=== PATIENT | female | born 1945 | race Caucasian/White ===

== ENCOUNTER 2016-06-20 10:46 | Inpatient (IN) | payer MEDICARE, OTHER ==
[2016-06-08 15:50] LABS: BASOPHILS 0.4 %; BASOPHILS ABSOLUTE 0.06 10/3/uL (0.0-0.16); EOSINOPHILS ABSOLUTE 0.13 10/3/uL (0.0-0.53); IMMATURE GRANULOCYTES 0.2 %; IMMATURE GRANULOCYTES ABSOLUTE 0.03 10/3/uL (0.0-0.11); LYMPHOCYTES ABSOLUTE 3.24 10/3/uL (0.67-4.30); MEAN CORPUS HGB CONC 31.9 g/dL (32.0-36.0); MEAN CORPUSCULAR HEMOGLOB 26.2 pg (26.0-34.0); MEAN PLATELET VOLUME 9.5 fL (9.2-13.0); MONOCYTES 7.4 %; NEUTROPHILS ABSOLUTE 9.05 10/3/uL (2.02-8.40); PLATELET COUNT 434 10/3/uL (150-400); RED CELL COUNT 5.19 10/6/uL (4.0-5.6); WHITE BLOOD CELLS 13.5 10/3/uL (4.5-10.5)
[2016-06-08 15:51] LABS: HEMATOCRIT 42.7 % (36.0-48.0); HEMOGLOBIN 13.6 g/dL (12.0-16.0); MANUAL DIFF NO %; MEAN CORPUSCULAR VOLUME 82.3 fL (80-100); RBC DISTRIBUTION WIDTH 14.9 % (12.0-16.0)
[2016-06-08 15:52] LABS: ASCORBIC ACID (UR NOT ORDER) NEG (NEG); BILIRUBIN, URINE NEGATIVE (NEG); KETONE, URINE TRACE MG/DL (NEG); LEUKOCYTE ESTERASE(NOT OR NEG (NEG); WBC (NOT ORDERED) (RFLEX) < 1 (0-5)
[2016-06-08 15:55] LABS: PARTIAL THROMBO TIME 28.6 SEC (22.5-37.2); PROTIME (NOT ORD) 13.4 SEC (12.0-14.5)
[2016-06-08 16:09] LABS: A/G RATIO 1.1 (0.7-1.9); ALBUMIN 4.1 G/DL (3.5-5.0); CALCIUM, SERUM 9.4 MG/DL (8.5-10.4); CHLORIDE, SERUM 105 MMOL/L (96-112); CO2 (CARBON DIOXIDE) 28 MMOL/L (24-34); GFR AFRICAN AMERICAN 102 ML/MIN (>=60); GFR NON AFRICAN AMERICAN 88 ML/MIN (>=60); GLOBULIN 3.6 G/DL (2.5-4.1); SGOT(AST) 16 U/L (5-40); SGPT(ALT) 19 U/L (5-65); SODIUM, SERUM 140 MMOL/L (135-148); TOTAL BILIRUBIN 0.3 MG/DL (0-1.2); TOTAL PROTEIN 7.7 G/DL (6.0-8.5)
[2016-06-08 16:11] LABS: ALKALINE PHOSPHATASE 144 U/L (45-117); BUN (BLOOD UREA NITROGEN) 26 MG/DL (6-23); GLUCOSE, SERUM 87 MG/DL (60-99)
--- NOTE | ~2016-06-20 | DS ---
Discharge Summary [facility] [address] [facility] [place]. [address] NAME: GILL VEGA : 47 STATUS : DIS IN PAT#: [id number] AGE: 70 ADM/REG DATE : 06/20/16 MR#: [id number] REPORT SERV DATE: 06/30/16 DICTATED BY: DEVON RYAN DATE: 06/30/16 REPORT STATUS : Draft TRANSCRIBED BY: KEM DATE: 06/30/16 Data Collection from hospitalization DISCHARGE DIAGNOSES: 1. Left hip arthritis. 2. Hypertension. 3. Anxiety and depression. 4. Obesity. CONSULTATIONS: None. PROCEDURES: Left total hip arthroplasty, 06/20/2016. PATHOLOGY: Left femoral head arthroplasty-degenerative joint disease. No evidence was seen of an infectious or neoplastic process. DISCHARGE MEDICATIONS: Aspirin 81 mg every morning, Prozac 10 mg twice a day, [place] 7.5/325 one tablet every 4 hours as needed, Hyzaar 1 tablet every morning, Citrucel 1 tablet every day at bedtime, fish oil 2400 mg daily, Probiotic one tablet at bedtime, Coumadin as instructed. CONDITION ON DISCHARGE: Stable. DISPOSITION: The patient was discharged home on a regular diet with activities as instructed. She will follow up with me on 07/05/2016 and on 08/02/2016. She will follow up at [facility] [place] on 06/26/2016. HOSPITAL COURSE: This is a 70-year-old female who is now 3-1/2 months out from a right total hip arthroplasty. She says that her right hip was doing well and she was pleased with her progress. She said she had developed some increased swelling in the right leg. She was currently taking water pills but had diminished her dosage. She said that she was still having pain in the left hip and said that it limited her walking significantly. She does have left hip arthritis. Treatment options were discussed and it was elected to proceed with surgical intervention. She was admitted to the hospital for further evaluation and treatment. Upon admission, she was taken to the operating room where she underwent the above-mentioned procedure. She tolerated this well. There were no complications. On postop day #1, she had no new complaints. INR level was 1.2. She was doing well. She was evaluated by Occupational and Physical Therapy. On the , she was sitting up in a bedside chair. JUANA hose were in place. White count was 13.5. Discharge planning was performed. We encouraged her to mobilize with Physical Therapy. Blood pressure was stable. On 06/23/2016, she was doing well. She was alert and cooperative. She had good pain control. Discharge instructions were given. Due to her improved and stable condition, she was discharged home with the above-stated instructions. Information collected by: Dora Majano Discharge Summary [facility] [address] [facility] [place]. [address] NAME: GILL VEGA : 47 STATUS : DIS IN PAT#: [id number] AGE: 70 ADM/REG DATE : 06/20/16 MR#: [id number] REPORT SERV DATE: 06/30/16 DICTATED BY: DEVON RYAN DATE: 06/30/16 REPORT STATUS : Draft TRANSCRIBED BY: KEM DATE: 06/30/16 I submit the above information as my discharge summary. TG/KEM Devon Ryan M.D. / [id number] CC: Hailee Somers M.D.
--- NOTE | ~2016-06-20 | OP ---
Record Of Operation [facility] [address] [place]. [address] NAME: GILL VEGA : 47 STATUS : ADM IN PAT#: [id number] AGE: 70 ADM/REG DATE : 06/20/16 MR#: [id number] REPORT SERV DATE: 06/20/16 DICTATED BY: DEVON RYAN DATE: 06/20/16 REPORT STATUS : Draft TRANSCRIBED BY: MODL DATE: 06/20/16 DATE OF PROCEDURE: 06/20/2016 PREOPERATIVE DIAGNOSIS: Left hip arthritis. POSTOPERATIVE DIAGNOSIS: Left hip arthritis. PROCEDURE PERFORMED: Left total hip arthroplasty. SURGEON: Devon Ryan M.D. WAREHOUSE TEAM LEADER: Anastasia Rodriguez. ANESTHESIA: General with local infusion. PROCEDURE IN DETAIL: The patient is clearly identified and after obtaining informed consent is brought to the operating room at [facility] where here the patient is induced under general anesthesia and subsequently placed in the left lateral decubitus position. This concluded, the thigh and flank are prepped and draped in the usual manner. A time-out procedure successfully performed and after registering the knee and marking the anatomy through an approximately 4.5 incision, the skin is divided. The fascial planes are divided. The lateral fascia then is divided. Hemostasis is obtained with electrocautery and a Charnley retractor is applied. The piriformis is identified, tagged, divided, and retracted over the sciatic nerve felt deep in the wound. At which point, the mini approach to the hip is formed with dividing the capsule in a mini approach with a cuff of tissues remaining at the femoral side to accomplish repair at the conclusion of the case. Dislocating the hip, end-stage arthritic changes are noted. The tissue surrounding the femoral neck are protected with the Hohmann retractor and the femoral neck cut is made according to preoperative templating. This concluded, the femoral head is removed. The acetabulum is exposed. The labral and fluvial tissues are removed and reaming is performed. Subsequently trialing with the appropriate trial, the permanent acetabular components placed with the [place] Sector. At which point, the acetabular trial component is then placed. The proximal femur is then addressed. The structures posteromedial to the greater trochanter are removed and this concluded the cookie-cutter canal finder lateralizer and reaming is performed. This concluded, broaching is performed and with excellent fit-fill and stability for the implant trialing is performed finding excellent leg length, stability, no impingement, good kickback, no push-pull, and the lesser trochanter palpably at the appropriate distance from the ischium when compared to preoperative templating. The trials were felt to be appropriate. These are all then removed and the permanent implants are then carefully applied uneventfully. Copious irrigation is then performed with same stability and findings noted after insertion. At which point, the joint then is carefully closed in layers including capsule, piriformis, lateral fascia, deep tissues, and skin. Aquacel dressing is applied and the patient is then allowed to awaken, is placed supine and is returned to the recovery room in stable condition having tolerated the procedure well. ESTIMATED BLOOD LOSS: 100 mL. Record Of Operation [address] [place]. [address] NAME: GILL VEGA : 47 STATUS : ADM [facility]#: [id number] AGE: 70 ADM/REG DATE : 06/20/16 MR#: [id number] REPORT SERV DATE: 06/20/16 DICTATED BY: DEVON RYAN DATE: 06/20/16 REPORT STATUS : Draft TRANSCRIBED BY: KEM DATE: 06/20/16 FLUIDS: 1000 mL. TOURNIQUET TIME: None. PATHOLOGY: Sent specimen. MICROBIOLOGY: None. COMPLICATIONS: None. SPONGE AND NEEDLE COUNTS: Reportedly correct. ANTIBIOTICS: Administered appropriately preoperatively and ordered to be discontinued within 23 hours. IMPLANTS: DePuy hip system, femur [place], size 7 high offset, -2/36 metal head. Acetabulum, [place] sector size 52 with a +4 neutral liner, and no screws. EDGAR/KEM Devon Ryan M.D. / [id number] CC: Devon Ryan M.D.
[~2016-06-20 10:46] MED LIST: ASAB PO; C5; CITRUCEL500 MG PO; FISH OIL1200 MG PO; GLUCCHONDR PO; HYZAAR 100/25 T1 TAB PO; IBU-200200 MG PO; METAMUCIL PO; NORCO1 TA1 PO; OXYCOD PO; PROBIOTIC PO; PROZ10 PO; TYLENOL ARTH650 MG PO; ZESTORETIC1 TA1 PO
[2016-06-21 05:38] LABS: HEMOGLOBIN 11.6 g/dL (12.0-16.0)
[2016-06-21 05:39] LABS: HEMATOCRIT 34.9 % (36.0-48.0)
[2016-06-21 05:45] LABS: INTERNATIONAL NORMAL RATI 1.2 UNITS (-); PROTIME (NOT ORD) 14.6 SEC (12.0-14.5)
[2016-06-21 05:52] LABS: CHLORIDE, SERUM 101 MMOL/L (96-112); CO2 (CARBON DIOXIDE) 27 MMOL/L (24-34); GFR AFRICAN AMERICAN 76 ML/MIN (>=60); GFR NON AFRICAN AMERICAN 65 ML/MIN (>=60); POTASSIUM, SERUM 4.1 MMOL/L (3.5-5.3); SODIUM, SERUM 140 MMOL/L (135-148)
[2016-06-21 05:54] LABS: BUN (BLOOD UREA NITROGEN) 21 MG/DL (6-23); CALCIUM, SERUM 8.3 MG/DL (8.5-10.4); GLUCOSE, SERUM 146 MG/DL (60-99)
[2016-06-22 05:00] LABS: HEMOGLOBIN 9.9 g/dL (12.0-16.0)
[2016-06-22 05:06] LABS: INTERNATIONAL NORMAL RATI 1.2 UNITS (-); PROTIME (NOT ORD) 15.5 SEC (12.0-14.5)
[2016-06-22 05:12] LABS: HEMATOCRIT 30.7 % (36.0-48.0)
[2016-06-23 05:02] LABS: INTERNATIONAL NORMAL RATI 1.2 UNITS (-); PROTIME (NOT ORD) 15.5 SEC (12.0-14.5)
[2016-06-23 05:04] LABS: HEMATOCRIT 31.4 % (36.0-48.0); HEMOGLOBIN 10.1 g/dL (12.0-16.0)
[2016-06-23] MEDS ORDERED: NORCO1 TA2 PO (12:00)
[2016-06-23] MEDS ORDERED: C5 (12:01)
== END 2016-06-23 12:54 | disposition home or self-care (01) | DRG 470 ==
LOC: SDC/OF 10:46 → PACU 16:22 → 3SO 18:17
PROVIDERS: Orthopaedic Surgery
PROC: 0SRB02Z Replacement of Left Hip Joint with Metal on Polyethylene Synthetic Substitute, Open Approach (ICD-10-PCS; principal; 2016-06-20 12:30)
DX: M16.12 Unilateral primary osteoarthritis, left hip (principal); E66.9 Obesity, unspecified; I10 Essential (primary) hypertension; D62 Acute posthemorrhagic anemia; F32.9 Major depressive disorder, single episode, unspecified; F41.9 Anxiety disorder, unspecified; Z68.36 Body mass index [BMI] 36.0-36.9, adult; Z88.0 Allergy status to penicillin
CPT/HCPCS: 36415; 71020; 72170; 80048; 80053; 81001; 85014; 85018; 85025; 85610; 85730; 86850; 86900; 86901; 87641; 88304; 88311; 93005; 97110-GP; 97116-GP; 97150-GP; 97161-GP; A9270-GY; C1776; J0690; J1170; J1885; J2250; J2274; J2405; J2710; J2795; J3010